=== PATIENT | female | born 1975 ===

== ENCOUNTER 2017-10-14 09:06 | Day surgery (SDC) | payer OTHER ==
[~2017-10-14] VITALS: Ht 157.5 cm; Wt 77.1 kg
[2017-10-14] MEDS ORDERED: LIDOCAINE 2% 1000 MG/50 ML VIAL INJ ONE (10:54)
[2017-10-14 10:59] LABS: BASOPHILS % (AUTO) 0.2 % (0.0-2.0); EOSINOPHILS # (AUTO) 0.2 K/uL (0-0.4); EOSINOPHILS % (AUTO) 1.9 % (0.0-4.0); HEMATOCRIT 39.7 % (36-48); HEMOGLOBIN 13.1 g/dL (12.0-16.0); LYMPHOCYTES # (AUTO) 2.1 K/uL (2.5-16.5); LYMPHOCYTES % (AUTO) 25.6 % (20.5-51.1); MEAN CORPUSCULAR HEMOGLOBIN 28 pg (27-31); MEAN CORPUSCULAR HGB CONC 33 g/dL (33-37); MONOCYTES # (AUTO) 0.4 K/uL (0.8-1.0); MONOCYTES % (AUTO) 5.5 % (1.7-9.3); NEUTROPHILS # (AUTO) 5.4 K/uL (1.8-7.7); NEUTROPHILS % (AUTO) 66.8 % (42.2-75.2); PLATELET COUNT (AUTO) 244 K/uL (140-450); RED BLOOD CELL COUNT(AUTO) 4.73 MIL/uL (4.20-5.40); RED CELL DISTRIBUTION WIDTH 13.6 % (11.6-13.7); WHITE BLOOD COUNT (AUTO) 8.1 K/uL (4.8-10.8)
[2017-10-14 11:28] LABS: PROTHROMBIN TIME 10.5 secs (10.8-13.4)
[2017-10-14] MEDS ORDERED: ORE25 PO (11:40)
[2017-10-14] MEDS ORDERED: LOSA50TA39 PO (11:40)
[2017-10-14] MEDS ORDERED: METF500T PO (11:40)
[2017-10-14] MEDS ORDERED: METO50TA20 PO (11:40)
[2017-10-14] MEDS ORDERED: MULT-1993 PO (11:40)
[2017-10-14] MEDS ORDERED: DULO60EC PO (11:40)
[2017-10-14] MEDS ORDERED: AMPH5TAB PO (11:40)
[2017-10-14] MEDS ORDERED: OMEP20TC10 PO (11:40)
[2017-10-14] MEDS ORDERED: PRE.3 PO (11:40)
[2017-10-14] MEDS ORDERED: ELA25 PO (11:40)
[2017-10-14] MEDS ORDERED: VITB12 PO (11:40)
[2017-10-14] MEDS ORDERED: VITA1TAB44 PO (11:40)
[2017-10-14] MEDS ORDERED: SYN.05 PO (11:40)
== END 2017-10-14 13:45 | disposition home or self-care (01) ==
LOC: MOR 09:06 → MMU 09:11 → MOR 13:45
PROVIDERS: ATTEND Internal Medicine Gastroenterology
DX: K76.0 Fatty (change of) liver, not elsewhere classified (principal); E66.9 Obesity, unspecified; M06.9 Rheumatoid arthritis, unspecified; M79.7 Fibromyalgia; Z88.8 Allergy status to other drugs, medicaments and biological substances; Z79.899 Other long term (current) drug therapy; Z68.31 Body mass index [BMI] 31.0-31.9, adult; Z98.890 Other specified postprocedural states; Z98.51 Tubal ligation status; Z90.710 Acquired absence of both cervix and uterus
CPT/HCPCS: 36415; 47000; 76942; 82948; 85025; 85610; 85730; J2001; J7030; Q0092; J7120